=== PATIENT | female | born 1990 | race Caucasian/White ===

== ENCOUNTER 2018-01-12 08:00 | Outpatient (CLI) | payer OTHER | END 2018-01-12 08:01 | LOC: LAB.R 08:00 | PROVIDERS: ATTEND Registered Nurse | DX: Z36.85 Encounter for antenatal screening for Streptococcus B (principal) | CPT/HCPCS: 87081 ==

== ENCOUNTER 2018-02-07 20:07 | Inpatient (IN) | payer OTHER ==
[2018-02-07] MEDS ORDERED: OXYTOCIN 10 UNIT/ML VIAL ONE (21:12)
[2018-02-07] MEDS ORDERED: OXYTOCIN 10 UNIT/ML VIAL IM ONE (21:46)
[2018-02-07] MEDS ORDERED: WITCH HAZEL/GLYCERIN 1 EACH MED..PAD TOP PRN (21:46)
[2018-02-07] MEDS ORDERED: HYDROCORTISONE/PRAMOXINE 10 GM PR PRN (21:46)
--- NOTE | 2018-02-07 22:09 | DELIVERY NOTE ---
Delivery Note - Labor Labor: positive: Spontaneous - Delivery Method Delivery Method: positive: Spontaneous vaginal delivery - Presentation Presentation: positive: Vertex, PEYTON - left occiput anterior - Nuchal Cord Nuchal Cord: positive: Present, Reduced - Amniotic Fluid Description Amniotic Fluid Description: positive: Clear - Episiotomy Type Episiotomy Type: positive: None - Laceration Laceration: positive: None - Delivery Outcome Delivery Outcome: positive: Livebirth - [place]: positive: Placed in direct skin contact with mother, Stimulated, [place] used sex: positive: Female - Cord Cord: positive: 3 vessels - Placenta Placenta: positive: Intact, Spontaneous - Estimated Blood Loss Estimated Blood Loss (in cc): 150 - Post Delivery Events Post Delivery Events: positive: No post delivery events - Delivery Comments (Free Text/Narrative) Delivery Comments (Free Text/Narrative): Labor: This 27yo @ 40.1 wks gestation by LMP at 12wks presented at approximately 2010 on 02/07/2018 in active labor. Cervix was noted to be anterior lip/100/+1, vertex. FHR pattern demonstrated baseline 150s with moderate variability, and was noted to have intermittent variable and early decelerations with contractions - overall reassuring. Per patient contractions began at approximately 0500 but were moderate and tolerable. Per patient SROM occurred at approximately 1700 and was noted to be a moderate amount of clear fluid. Pt states her contractions began to become significantly stronger and closer together immediately following SROM. The patient progressed to complete/ complete/+2 with effective pushing at 2110. Normal labor course. : Normal SVB of viable female infant named Kirsten on 02/07/2018 at 2127. Loose nuchal cord x1 -delivered through. 's were 8/9 at 1 and 5 minutes respectively. The was placed on maternal abdomen, stimulated, dried, and placed skin to skin. The umbilical cord was allowed to stop pulsating after which time it was doubly clamped and cut. Cord blood was obtained. Placenta delivered spontaneously and intact at 2132. 3VC. Pitocin 10U IM was administered with delivery of anterior shoulder to patient's right thigh. EBL 150mL. Uterine fundus firm and there is no excessive bleeding. The perineum, vagina, and cervix were inspected and found to be intact. Bilateral labia minora are bruised. initiated. Both mother and baby were left in stable condition.
--- NOTE | 2018-02-07 22:11 | HISTORY & PHYSICAL EXAMINATION ---
Admit History - Instructions Inupiat/Slash: -Left hand click circles element as positive or present. -Right hand click slashes element as negative or not present. - Visit Reason Visit Reason: Contractions, Membranes rupture - : 1 Parity: 0 Premature: 0 Ectopic: 0 : 0 Care: positive: [facility] Risk/History: positive: None Complications This : positive: None Smoking Status: Never smoker - Mother's Labs Mother's Blood Type: positive: O Mother's RH: positive: Positive GBS: positive: Group B Step Negative Rubella Status: positive: Immune Physical - Abdominal Exam Vital Signs: Temp Pulse Resp BP Pulse Ox 36.6 C 77 16 129/76 100 02/07/18 20:22 02/07/18 20:22 02/07/18 20:22 02/07/18 20:22 02/07/18 20:22 Contraction Frequency (min/apart): 2-4 Contraction Intensity: positive: Strong Uterine Resting Tone: positive: Soft - Monitoring Heart Rate Baseline: 150 Strip Review: positive: Category II - Presentation Presentation: positive: Vertex - Vaginal Exam Membranes: positive: Membranes ruptured Dilation (in cm): 9.5 Effacement (%): 100 Station: positive: 1 Cervical Position: positive: Anterior - Speculum Exam Speculum Exam Performed: positive: No - Other Notes Labor Progress Note/Additional Text: Heart RRR w/o M/G/R Lungs CTAB Abdomen gravid, soft, nontender Bilateral LE's no edema Plan for Labor - Plan For Labor I expect patient to be DC'd or transferred within 96 hours.: Yes Plan for Labor: Alexandra is a 27yo at 40.0 wks gestation who presents to [facility] with her surveyor geodetic Nayely with complaints of contractions every 2-4 minutes and SROM at 1700 and was a moderate amount of clear fluid. She transferred from [facility] at 30 weeks gestation with an uneventful . Acyclovir initiated at 36 weeks due to hx of genital HSV. PMHx: Genital HSV- Acyclovir initiated at 36 weeks gestation for prophylaxis. Social Hx: Never smoker, No ETOH or IVDA; - deployed. Meds: PNV; Acyclovir Family Hx: Diabetes - father, maternal GF; Heart disease- maternal GF Labs: GC/CT neg O pos, antibody neg Rubella immune VZV immune HIV non-reactive RPR non-reactive Hep B neg Hep C neg Hep A neg Serum integrated screen neg GBS negative Tdap 11/30/2017 Ultrasounds: FAS WNL, posterior placenta, no previa, SHANTI WNL, 3VC, EFW 75th percentile. A: 27yo @ 40.0wks gestation Active labor GBS negative Intact perineum P: Admit to L&D for expectant management Due to patient arriving close to delivery an IV was not started. IM Pitocin in the room to be given with delivery of anterior shoulder. Patient spontaneously delivered a viable female over intact perineum. Routine care and medications Will reevaluate tomorrow morning or sooner PRN.
[2018-02-07] MEDS: ACETAMINOPHEN 500 MG TABLET PO SCH (23:43)
[2018-02-07] MEDS: IBUPROFEN 800 MG TABLET PO SCH (23:44)
[2018-02-07 23:59] LABS: BASOPHILS # (AUTO) 0.1 10^3/uL (0.0-0.1); BASOPHILS % (AUTO) 0.3 %; HGB - HEMOGLOBIN 12.9 g/dL (12.0-16.0); LYMPHOCYTES % (AUTO) 5.1 %; MEAN CORPUSCULAR HEMOGLOBIN 32.4 pg (27.0-31.0); MEAN CORPUSCULAR HGB CONC 33.2 g/dL (32.0-36.0); MEAN CORPUSCULAR VOLUME 97.7 fL (81.0-99.0); MEAN PLATELET VOLUME 7.9 fL (7.9-10.8); MONOCYTES # (AUTO) 0.6 10^3/uL (0.0-1.0); NEUTROPHILS # (AUTO) 18.5 10^3/uL (1.5-6.6); NEUTROPHILS % (AUTO) 91.6 %; PLT - PLATELET COUNT 240 10^3/uL (130-450); RED BLOOD COUNT 3.99 10^6/uL (4.20-5.40); RED CELL DISTRIBUTION WIDTH 14.3 % (12.0-15.0); WHITE BLOOD COUNT 20.2 x10^3/uL (4.8-10.8)
[2018-02-08] MEDS: IBUPROFEN 800 MG TABLET PO SCH ×3 (06:00→16:14)
[2018-02-08] MEDS: ACETAMINOPHEN 500 MG TABLET PO SCH ×3 (06:01→16:15)
--- NOTE | 2018-02-08 16:48 | PROVIDER PROGRESS NOTE ---
Subjective - Prog Note Date Prog Note Date: 02/08/18 Prog Note Time: 16:45 - Subjective Pt reports feeling: Improved Subjective: Alexandra is doing well. She is ambulating & voiding w/o difficulty. She is passing flatus & tolerating a regular diet. She reports no discomfort. She is exclusively w/o difficulty. She is having minimal lochia. Objective - Vital Signs/Intake & Output Reviewed Vital Signs: Yes - Objective General Appearance: positive: No acute distress, Alert Eyes Bilateral: positive: Normal inspection Respiratory: positive: Chest non-tender, No respiratory distress, Breath sounds nml Cardiovascular: positive: Regular rate & rhythm, No murmur, No gallop Abdomen: positive: Non-tender, No distention, Other (FF U-2) Skin: positive: Color nml, No rash, Warm, Dry Extremities: positive: Non-tender, Full ROM, Nml appearance, No pedal edema. negative: Calf tenderness, Lori's sign/cords Neurologic/Psychiatric: positive: Oriented x3, CN's nml (2-12), Motor nml, Sensation nml, Mood/affect nml Comments/Other: breasts b/l s, nt; nipples b/l intact & everted, observed 06/02 latch; pt declines perineal assessment - Lab Results Fish Bones: 02/07/18 23:52 Other Labs: Lab Results x24hrs 02/07/18 Range/Units 23:52 WBC 20.2 H (4.8-10.8) x10^3/uL RBC 3.99 L (4.20-5.40) 10^6/uL Hgb 12.9 (12.0-16.0) g/dL Hct 38.9 (37.0-47.0) % MCV 97.7 (81.0-99.0) fL MCH 32.4 H (27.0-31.0) pg MCHC 33.2 (32.0-36.0) g/dL RDW 14.3 (12.0-15.0) % Plt Count 240 (130-450) 10^3/uL MPV 7.9 (7.9-10.8) fL Neut # (Auto) 18.5 H (1.5-6.6) 10^3/uL Lymph # (Auto) 1.0 L (1.5-3.5) 10^3/uL Bland # (Auto) 0.6 (0.0-1.0) 10^3/uL Eos # (Auto) 0.0 (0.0-0.7) 10^3/uL Baso # (Auto) 0.1 (0.0-0.1) 10^3/uL Absolute Nucleated RBC 0.00 x10^3/uL Nucleated RBC % 0.0 /100WBC ABX Reporting Has patient been on IV antibiotics over the past 48 hours?: No Assessment/Plan - Problem List (1) (normal spontaneous vaginal delivery) Impression: 27 y/o s/p 02/07/2018 w/o complication PPD #1 Normal uterine involution Adequate pain control w/o opioid analgesia well P: 1. continue routine pp care 2. support PRN 3. Anticipate D/C PPD#2
[2018-02-09] MEDS: IBUPROFEN 800 MG TABLET PO SCH (08:42)
[2018-02-09] MEDS: ACETAMINOPHEN 500 MG TABLET PO SCH (08:43)
--- NOTE | 2018-02-09 08:59 | Discharge Plan ---
Discharge Plan Disposition: 01 Home, Self Care Condition: Good Diet: Regular Activity Restrictions: pelvic rest x6 weeks Shower Restrictions: No Driving Restrictions: No Weight Bearing: Full Weight Instruction Topics: Vaginal After, Breastfeed How To, Jaundice Signs Inf , Exercises Kegel Additional Instructions or Follow Up instructions: x1 week in outpt ob clinic, earlier PRN No Smoking: If you smoke, Please STOP! Call for help. Follow-up with: Christina Bourgeois CNM, [place] [Primary Care Provider] -
--- NOTE | 2018-02-09 09:03 | DISCHARGE SUMMARY ---
"Discharge Summary Admit Date: 02/07/18 Discharge Date: 02/09/18 Discharging Provider: Arturo Code Status: Attempt Resuscitation Condition at Discharge: Good Discharge Disposition: 01 Home, Self Care Discharge Facility [facility]: [facility] - DIAGNOSES Admission Diagnoses: spontaneous active labor at term Discharge Diagnoses with Status of Each Condition: - HPI History of Present Illness: Alexandra Jha is a 27 y/o [id number] who presented in active, spontaneous labor in the 2nd stage @ term. She progressed spontaneously to deliver a viable female vaginally w/o any complications or interventions. - CONSULTS | PROCEDURES Procedures: - HOSPITAL COURSE Hospital Course: , Esther pain is well-controlled w/o analgesia. She is ambulating & voiding w/o difficulty. She is passing flatus & tolerating a regular diet. She reports minimal lochia rubra. She is exclusively w/o discomfort or difficulty. She is planning 3 months of pp leave from work & her returns home today from a deployment. He will have 2 weeks of leave to assist her with the . She is undecided re: pp contraception. She is not planning another @ this time. She is able to fully articulate pp warning s/sx, including pp depression s/sx, and pp aftercare instructions. She is ready to leave the hospital. - ALLERGIES Allergies/Adverse Reactions: Allergies Allergy/AdvReac Type Severity Reaction Status Date / Time No Known Drug Allergies Allergy Verified 02/07/18 22:25 - MEDICATIONS Home Medications: Ambulatory Orders Medication Instructions Recorded Confirmed Ibuprofen [Motrin] 800 mg PO Q6H tablet 02/09/18 - PHYSICAL EXAM AT DISCHARGE General Appearance: positive: No acute distress, Alert Respiratory: positive: Chest non-tender, No respiratory distress, Breath sounds nml Cardiovascular: positive: Regular rate & rhythm, No murmur, No gallop Abdomen: positive: Non-tender, No distention, Other (FF U-2) Skin: positive: Color nml, No rash, Warm, Dry Extremities: positive: Non-tender, Full ROM, Nml appearance, No pedal edema. negative: Calf tenderness, Lori's sign/cords Neurologic/Psychiatric: positive: Oriented x3, CN's nml (2-12), Motor nml, Sensation nml, Mood/affect nml Physical Exam Other/Comments: Breasts b/l s, nt; nipples b/l intact & everted; colostrum readily expressible; pt declines perineal assessment - LABS Result Diagrams: 02/07/18 23:52 - FOLLOW UP Follow Up: x1 week w/ Christina Bourgeois CNM, earlier PRN - TIME SPENT Time Spent in Discharge (Minutes): 15"
[2018-02-09 16:53] VITALS: BP 133/80
--- NOTE | 2018-02-09 16:59 | Labor Flowsheet ---
Labor Flowsheet Datetime Report Generated by CPN: 02/09/2018 16:58 Datetime: 02/08/2018 08:02 VITAL SIGNS NBP Sys/Silvana/Mean (mmHg): 112 : 73 : 82 Pulse: 87 COMMUNICATION LaborFlag: Labor
== END 2018-02-09 16:30 | disposition home or self-care (01) | DRG 774 ==
LOC: WFO 20:07 → FBP 20:13 → WFO 21:33 → FBP 02-08 16:39
PROVIDERS: ADMIT Nurse Practitioner Obstetrics & Gynecology; ATTEND Registered Nurse
PROC: 10E0XZZ Delivery of Products of Conception, External Approach (ICD-10-PCS; principal; 2018-02-07)
DX: O98.32 Other infections with a predominantly sexual mode of transmission complicating childbirth (principal); A60.00 Herpesviral infection of urogenital system, unspecified; O69.81X0 Labor and delivery complicated by cord around neck, without compression, not applicable or unspecified; O76 Abnormality in fetal heart rate and rhythm complicating labor and delivery; Z3A.40 40 weeks gestation of pregnancy; Z37.0 Single live birth; Z79.899 Other long term (current) drug therapy
CPT/HCPCS: 36415; 85025; 99213

== ENCOUNTER 2018-07-03 12:04 | Emergency (ER) | payer OTHER ==
[2018-07-03] MEDS ORDERED: BENZOCAINE/MENTHOL LOZENGE MM STA (13:12)
--- NOTE | 2018-07-03 13:14 | ED Physician Documentation ---
History of Present Illness - Stated complaint Stated Complaint: THROAT PX - Chief complaint Chief Complaint: Heent - Additonal information Additional information: hx from pt fever sore throat NIÑO no cough abd pain NV denies preg Review of Systems Constitutional: reports: Fever Throat: reports: Sore throat Respiratory: denies: Cough GI: denies: Abdominal Pain Immunocompromised: denies: Immunocompromised PD PAST MEDICAL HISTORY - Past Medical History Past Medical History: No - Past Surgical History Past Surgical History: No - Present Medications Home Medications: Ambulatory Orders Medication Instructions Recorded Confirmed Ibuprofen [Motrin] 800 mg PO Q6H tablet 02/09/18 Dextromethorphan/Benzocaine 1 each PO Q4H PRN #20 lozenge 07/03/18 [Cepacol Sorethroat-Cough Carol] - Allergies Allergies/Adverse Reactions: Allergies Allergy/AdvReac Type Severity Reaction Status Date / Time No Known Drug Allergies Allergy Verified 07/03/18 12:21 - Social History Does the pt smoke?: No Smoking Status: Never smoker Does the pt drink ETOH?: No Does the pt have substance abuse?: No - Immunizations Immunizations are current?: Yes PD ED PE NORMAL - Vitals Vital signs reviewed: Yes - General General: Alert and oriented X 3 - HEENT HEENT: Ears normal, Moist mucous membranes. No: Pharynx benign (erythema exudate and moderately swollen tonsils) - Neck Neck: Supple, no meningeal sign. No: No adenopathy (anterior no posterior) - Cardiac Cardiac: RRR - Respiratory Respiratory: No respiratory distress, Clear bilaterally - Neuro Neuro: Alert and oriented X 3 Results - Vitals Vitals: Vital Signs - 24 hr 07/03/18 12:20 Temperature 36.1 C L Heart Rate 105 H Respiratory 15 Rate Blood Pressure 107/65 O2 Saturation 97 Oxygen O2 Source Room air - Labs Labs: Laboratory Tests 07/03/18 12:25 Group A Strep Rapid Negative Departure - Departure Disposition: 01 Home, Self Care Clinical Impression: Exudative pharyngitis Condition: Good Instructions: ED Strep Pharyngitis Poss Prescriptions: Dextromethorphan/Benzocaine [Cepacol Sorethroat-Cough Carol] 1 each PO Q4H PRN #20 lozenge PRN Reason: sore throat Comments: The rapid strep test was negative But based on your exam i suspect you have strep throat A culture will also be run and if it is positive the ER staff will call you to prescribe antibiotics You will not need to come back to the ER - we will just call it in to your pharmacy In the mean time recommend cepacol lozenges and motrin as needed Rest and drink plenty of fluids Forms: Activity restrictions
[2018-07-03 13:33] VITALS: BP 108/66
== END 2018-07-03 13:31 | disposition home or self-care (01) ==
LOC: ED 12:04
DX: J02.9 Acute pharyngitis, unspecified (principal)
CPT/HCPCS: 87070; 87430; 99282; 99283; A9270